=== PATIENT | male | born 1985 | race Caucasian/White ===

== ENCOUNTER 2019-07-09 08:24 | Outpatient (CLI) | payer BC, SELFPAY ==
--- NOTE | 2019-07-09 08:34 | XR_ITS ---
WS: [id number] XR chest 2V* [id number] REASON FOR EXAM: ATYPICAL CHEST PAIN/SARCOIDOSIS FINDINGS: The heart and mediastinal interfaces are normal. The hilum show no lymphadenopathy and no peripheral abnormalities are seen. The hilum and apices are normal. No osseous abnormalities. XR/XR chest 2V* [id number] IMPRESSION: Negative chest for active pathology.
== END 2019-07-09 08:25 | disposition home or self-care (01) ==
LOC: RAD 08:29
PROVIDERS: Family Provider Family Medicine; PCP Family Medicine; Visit Provider Family Medicine
DX: R07.89 Other chest pain (principal); D86.9 Sarcoidosis, unspecified
CPT/HCPCS: 71046

== ENCOUNTER → 2019-07-18 13:17 | Outpatient (BNVA) | payer BC, SELFPAY | PROVIDERS: Family Provider Family Medicine; PCP Family Medicine; Referring Provider Family Medicine; Visit Provider Podiatrist Foot & Ankle Surgery | DX: M79.671 Pain in right foot (principal) | CPT/HCPCS: 73630; 73660 ==

== ENCOUNTER 2021-06-28 01:44 | Emergency (ER) | payer SELFPAY ==
[2021-06-28 01:59] VITALS: BP 157/85; PULSE 81; RESP 18; TEMP 36.7; O2SAT 99; BMI 30.3
--- NOTE | 2021-06-28 02:18 | W.ED.DENTAL ---
HPI - Dental/Oral General: Chief complaint: Dental/Oral Stated complaint: Tooth Ache Time Seen by Provider: 06/28/21 02:08 Source: patient Mode of arrival: ambulatory Limitations: no limitations History of Present Illness: 36-year-old male states been having right lower tooth pain tooth #29. He states that he had a history of a And had a adjusted little over 2 weeks ago with increasing pain he states he is going to get into his dentist this week but cannot sleep tonight due to the pain states pain is currently a 7 out of 10 no trismus no fever. Associated symptoms: Denies fever(s) Review of Systems Const: Denies: fever(s), chills, body aches or change in appetite Eyes: Denies: blurry vision or eye discomfort ENMT: Reports: dental pain Card: Denies: chest pain Resp: Denies: dyspnea GI: Denies: abdominal pain, nausea, vomiting or diarrhea : Denies: dysuria Musc: Denies: neck pain or back pain Skin/Breast: Denies: rash Neuro: Denies: headache(s) Psych: Denies: depression Yordan/Lymph: Denies: easy bruising All/Imm: Denies: urticaria PFSH ED PFSH: Medical History (Updated 06/28/21 @ 02:21 by Kumar Hummel MD) No pertinent past medical history Social History Smoking and tobacco status: never smoked Physical Exam Const: COMMON NORMALS: no acute distress and patient oriented x3 HENMT: COMMON NORMALS: normocephalic HEAD & SCALP: normocephalic TEETH & GINGIVA IMAGES: 1. Tenderness is noticed that tooth #29 no inflammation noted no abscess or trismus Eye: COMMON NORMALS: Equal, round and reactive pupils present PUPIL: Yes Equal, round and reactive pupils present Neck/C-Spine: COMMON NORMALS: supple Chest: COMMONS NORMALS: normal inspection of the chest Resp: COMMON NORMALS: normal respiratory effort Cardio: COMMON NORMALS: regular rate RATE: regular rate GI: INSPECTION: Yes normal to inspection Extremity: COMMON NORMALS: normal to inspection Neuro: COMMON NORMALS: patient oriented x3 Psych: COMMON NORMALS: mental status grossly normal Procedures Nerve Block Nerve Block 1: Time out performed: Yes Local Anesthetic: bupivacaine 0.5% Amount of anesthesia used (mL): 10 Side: right Intraoral Nerve Block: inferior alveolar Procedure Successful: Yes Patient Tolerated Procedure: well Complications: none Course Vital Signs: Vital signs: Vital Signs Temperature 98.1 F 06/28/21 01:59 Pulse Rate 81 06/28/21 01:59 Respiratory Rate 18 06/28/21 01:59 Blood Pressure 157/85 06/28/21 01:59 Pulse Oximetry 99 06/28/21 01:59 MDM - Dental/Oral Medical Decision Making Presents here with dental pain right lower molar where he had a crown placed he is in try to get in to see his dentist this week performed a inferior alveolar nerve block with good pain control he is stable for discharge at this time. Discharge Plan Discharge Patient Disposition: Home Clinical Impression: Toothache Condition: Stable Prescriptions: New hydrocodone-acetaminophen 5-325 mg tablet 1 tab PO Q6H PRN (Reason: pain) Qty: 6 0RF Discharge Orders: Discharge ED (Routine); Ordered 06/28/21 Ordered By: Kumar Hummel Referrals: Hakeem Luna MD [Primary Care Provider] - Discharge Diet: Advance as tolerated Discharge Activity: Resume usual activity Patient Instructions: Toothache (ED) Coding Level of Care Code ED Quality Assurance Coach for Milton Harper
== END 2021-06-28 02:25 | disposition home or self-care (01) ==
PROVIDERS: Emergency Provider Emergency Medicine; PCP Family Medicine
DX: K08.89 Other specified disorders of teeth and supporting structures (principal)
CPT/HCPCS: 99282; J3490